=== PATIENT | male | born 1955 | race Caucasian/White ===

== ENCOUNTER → 2017-11-07 | Day surgery (SDC) | payer OTHER ==
[2017-10-22 10:19] VITALS: Ht 180.3 cm; Wt 90.9 kg
[~2017-11-07] VITALS: Ht 180.3 cm; Wt 90.9 kg
[~2017-11-07] MED LIST: ASPI-232 PO; ATOR-22 PO; BUPIVACAINE 0.25% 2.5MG/ML PF 10 ML VIAL ONE; CITA20TA9 PO; LIDOCAINE MPF 1% INJ 30 ML SDV (L&D) INFIL ONE; LISI-461 PO; LRS10 PO; MELO15TA4 PO; XNX5 PO
--- NOTE | 2017-11-07 13:56 | History & Physical Bridge - [place] ---
H&P Re-Evaluation Bridge Note: I have examined the patient, reviewed the History & Physical and in the interval since the performance of the History & Physical I have noted the following changes of clinical significance: No changes noted
[2017-11-07 14:48] VITALS: BP 126/85; PULSE 60; TEMP 37; O2SAT 98
--- NOTE | 2017-11-07 14:50 | Discharge Instructions ---
Discharge Instructions Date of Service Nov 07, 2017. Visit Reason for Visit: Lumbar Spondylosis Discharge Discharge Diagnosis / Problem: low back pain Discharge Goals Goal(s): Decrease discomfort, Improve function Activity Recommendations Activity Limitations: resume your previous activity Anesthesia . Post Anesthesia Instructions: If you have had General Anesthesia or IV Sedation: * Do not drive today. * Resume driving when surgeon permits. * Do not make important decisions or sign legal documents today. * Call surgeon for: 1. Temperature elevations greater than 101 degrees F. 2. Uncontrollable pain. 3. Excessive bleeding. 4. Persistent nausea and vomiting. 5. Medication intolerance (nausea, vomiting or rash). * For nausea and vomiting use only clear liquids such as: tea, soda, bouillon until nausea subsides, then gradually increase diet as tolerated. * If you have any concerns or questions, call your surgeon's office. If physician is unavailable and it is an emergency, call 911 or go to the nearest emergency room. . Diet Recommendations Recommended Home Diet: resume previous diet Procedures Procedures Performed: Left L4-5, L5-S1 Radio Frequency Denervation Pending Studies Studies pending at discharge: no Medical Emergencies . Who to Call and When: Medical Emergencies: If at any time you feel your situation is an emergency, please call 911 immediately. . Non-Emergent Contact Non-Emergency issues call your: Specialist . . "Provider Documentation" section prepared by Carrington Theodore. .
--- NOTE | 2017-11-07 15:02 | OPERATIVE REPORT ---
DATE OF OPERATION: 11/07/2017 PREOPERATIVE DIAGNOSIS: Lumbar facet arthropathy, left side L4-L5, L5-S1. POSTOPERATIVE DIAGNOSIS: Same. PROCEDURE: Left L4-L5, L5-S1 facet joint radiofrequency denervation. INDICATIONS: The patient is a 62-year-old male who underwent denervation last in August 2016 more than a year ago. The pain has been returning slightly and he presents today for denervation procedure to provide him with continued relief. PHYSICAL EXAMINATION: Pleasant male seated comfortably. He has some point tenderness to palpation in the lower left side L4-L5, L5-S1, it is worse with extension, no problems with flexion. He has normal motor and sensory examination of his lower extremities. CONSENT: Verbal and written consent was obtained from the patient. Risks and benefits were reviewed. Risks include but are not limited to allergic reaction, infection and denervation. He wishes to proceed. DESCRIPTION OF PROCEDURE: The patient was taken back to the special procedures room of the [facility] where he was maintained in a prone position. Backside was cleansed with Betadine x3 and a dry sterile dressing was applied. Fluoroscope was used to identify the left L4 transverse process junction and the left L5 transverse process junction and the left sacral ala. The overlying skin was anesthetized with 2 mL of lidocaine 1% at each site overlying the L4 transverse process junction, the L5 transverse process junction and the left sacral ala. A 22 gauge 10 cm Path.To needle was then placed contacting bony target at each site. It was maneuvered so that sensory stimulation was provoked at 0.2 volts at L4, 0.2 at L5 and 0.3 at the sacral ala. He then underwent anesthetization with an additional 1 mL lidocaine 1% at each site and then radiofrequency denervation 80 degrees 100 seconds x2 at each site and then followed by bupivacaine 0.25% 1 mL at each site and procedure was well tolerated. DISPOSITION: 1. The patient is taken out into the discharge recovery area where he will be discharged home once discharge criteria have been met. 2. Follow up in the [facility] office in 2-4 weeks. I attest to the content of the Intraoperative Record and any orders documented therein. Any exception s are noted below.
== END | disposition home or self-care (01) ==
LOC: X.SURG 13:33
PROVIDERS: ATTEND Physical Medicine & Rehabilitation
DX: M47.816 Spondylosis without myelopathy or radiculopathy, lumbar region (principal); M54.5 Low back pain